=== PATIENT | male | born 1995 | race African-American/Black ===

== ENCOUNTER 2017-03-29 00:53 | Emergency (ER) | payer MEDICAID ==
[~2017-03-29] VITALS: Ht 177.8 cm; Wt 86.0 kg
[2017-03-29 01:53] LABS: BASOPHILS % 0.8 % (0.0-2.0); EOSINOPHILS % 2.3 % (0.0-5.0); HEMATOCRIT. 36.6 % (42.0-52.0); HEMOGLOBIN. 12.7 g/dL (14.0-18.0); LYMPHOCYTES % 34.5 % (20.0-50.0); MEAN CORPUSCULAR HEMOGLOBIN 29.6 pg (28.0-32.0); MEAN CORPUSCULAR VOLUME 85.4 fL (80.0-94.0); MONOCYTES % 6.9 % (2.0-8.0); NEUTROPHILS % 55.5 % (40.0-76.0); PLATELET 149 x1000/uL (130-400); RED BLOOD CELL COUNT 4.29 mill/uL (4.7-6.1); RED CELL DISTRIBUTION WIDTH 13.6 % (11.6-14.6)
[2017-03-29 01:56] LABS: CLARITY URINE CLEAR (CLEAR); COLOR URINE YELLOW (YELLOW); GLUCOSE URINE NEGATIVE (NEGATIVE); KETONES URINE TRACE (NEGATIVE); LEUKOCYTE ESTERASE URINE NEGATIVE (NEGATIVE); NITRITE URINE NEGATIVE (NEGATIVE); OCCULT BLOOD URINE NEGATIVE (NEGATIVE); PH URINE 6.5 (4.5-8.0); PROTEIN URINE NEGATIVE (NEGATIVE); SPECIFIC GRAVITY URINE 1.029 (1.005-1.030)
[2017-03-29 02:06] LABS: CHLORIDE 110 mEq/L (98-107)
[2017-03-29 02:13] LABS: *AMPHETAMINES SCREEN URINE PRESUMTIVE POSITIVE (NEGATIVE); *BARBITURATES SCREEN URINE NEGATIVE (NEGATIVE); *BENZODIAZEPINES SCREEN URINE NEGATIVE (NEGATIVE); *COCAINE SCREEN URINE NEGATIVE (NEGATIVE); CANNABINOID URINE SCREEN PRESUMTIVE POSITIVE (NEGATIVE); METHADONE URINE SCREEN NEGATIVE (NEGATIVE); OPIATES URINE SCREEN NEGATIVE (NEGATIVE); PHENCYCLIDINE URINE SCREEN NEGATIVE (NEGATIVE)
[2017-03-29 02:16] LABS: CARBON DIOXIDE 27 mEq/L (21-32); ETHANOL BLOOD < 10 mg/dL
[2017-03-29 10:11] LABS: CREATINE KINASE 216 IU/L (39-308)
[2017-03-29 15:30] VITALS: BP 124/70
== END 2017-03-29 18:25 | disposition left against medical advice (07) ==
LOC: ER 00:53
DX: F12.129 Cannabis abuse with intoxication, unspecified (principal); F90.9 Attention-deficit hyperactivity disorder, unspecified type; F84.0 Autistic disorder; F17.200 Nicotine dependence, unspecified, uncomplicated
CPT/HCPCS: 36415; 72100; 80053; 80305; 80307; 80329; 81001; 82550; 83690; 85025; 99285; G0482

== ENCOUNTER 2017-04-01 11:47 | Inpatient (IN) | payer MEDICAID, OTHER ==
[2017-04-01] VITALS (16 sets, daily range): BP systolic 108–136; BP diastolic 67–85
[~2017-04-01] VITALS: Ht 177.8 cm; Wt 81.6 kg
[2017-04-01] MEDS ORDERED: LORAZEPAM 2MG/ML CPJ IV STA (12:04)
[2017-04-01] MEDS ORDERED: SODIUM CHLORIDE 0.9% 1,000 ML IV ONE ×2 (12:04→13:20)
[2017-04-01 12:29] LABS: BASOPHILS % 0.6 % (0.0-2.0); EOSINOPHILS % 0.3 % (0.0-5.0); HEMOGLOBIN. 14.6 g/dL (14.0-18.0); LYMPHOCYTES % 12.9 % (20.0-50.0); MEAN CORPUSCULAR HEMOGLOBIN 29.5 pg (28.0-32.0); MEAN PLATELET VOLUME 8.9 fl (7.4-10.4); MONOCYTES % 10.3 % (2.0-8.0); NEUTROPHILS % 75.9 % (40.0-76.0); PLATELET 211 x1000/uL (130-400); RED BLOOD CELL COUNT 4.94 mill/uL (4.7-6.1); RED CELL DISTRIBUTION WIDTH 13.4 % (11.6-14.6)
[2017-04-01] MEDS ORDERED: DEXTROSE 50% WATER 50ML SYRINGE IV ONE ×4 (12:29→17:00)
[2017-04-01 12:36] LABS: CHLORIDE 104 mEq/L (98-107)
[2017-04-01 12:40] LABS: CARBON DIOXIDE 21 mEq/L (21-32)
[2017-04-01 12:45] LABS: CREATINE KINASE 897 IU/L (39-308); ETHANOL BLOOD < 10 mg/dL
[2017-04-01 12:59] LABS: CLARITY URINE CLEAR (CLEAR); COLOR URINE DARK YELLOW (YELLOW); GLUCOSE URINE TRACE (NEGATIVE); KETONES URINE 2+ (NEGATIVE); LEUKOCYTE ESTERASE URINE 1+ (NEGATIVE); NITRITE URINE NEGATIVE (NEGATIVE); OCCULT BLOOD URINE NEGATIVE (NEGATIVE); PROTEIN URINE NEGATIVE (NEGATIVE); SPECIFIC GRAVITY URINE 1.032 (1.005-1.030)
[2017-04-01] MEDS ORDERED: LORAZEPAM 2MG/ML CPJ IV ONE ×2 (13:15→14:30)
[2017-04-01] MEDS ORDERED: DIPHENHYDRAMINE 50MG/ML VIAL IM ONE (13:30)
[2017-04-01] MEDS ORDERED: HALOPERIDOL LACTATE 5MG/ML VIAL IM ONE ×4 (13:30→16:15)
[2017-04-01 13:35] LABS: *AMPHETAMINES SCREEN URINE PRESUMTIVE POSITIVE (NEGATIVE); *BARBITURATES SCREEN URINE NEGATIVE (NEGATIVE); *BENZODIAZEPINES SCREEN URINE NEGATIVE (NEGATIVE); *COCAINE SCREEN URINE NEGATIVE (NEGATIVE); CANNABINOID URINE SCREEN PRESUMTIVE POSITIVE (NEGATIVE); METHADONE URINE SCREEN NEGATIVE (NEGATIVE); OPIATES URINE SCREEN NEGATIVE (NEGATIVE); PHENCYCLIDINE URINE SCREEN NEGATIVE (NEGATIVE)
[2017-04-01] MEDS ORDERED: DIPHENHYDRAMINE 50MG/ML VIAL ONE (13:37)
[2017-04-01] MEDS ORDERED: CLONIDINE 0.1MG TABLET PO PRN (16:45)
[2017-04-01] MEDS ORDERED: IPRATROPIUM/ALBUTEROL 0.5-3(2.5)MG/3ML NEB INH PRN (16:45)
[2017-04-01] MEDS ORDERED: MAGNESIUM/ALUMINUM HYDROXIDE/SIMETHICONE 30ML UDC PO PRN (16:45)
[2017-04-01] MEDS ORDERED: ONDANSETRON HCL 4MG/2ML VIAL IV PRN (16:45)
[2017-04-01] MEDS ORDERED: HALOPERIDOL LACTATE 5MG/ML VIAL IM PRN (16:45)
[2017-04-01 17:30] LABS: PHOSPHORUS 2.5 mg/dL (2.5-4.9)
[2017-04-01 18:17] LABS: HEPATITIS B CORE AB IGM NEGATIVE
[2017-04-01] MEDS: DEXT 5%/0.45% NACL 1000ML 1,000 ML IV SCH (18:22)
[2017-04-01] MEDS ORDERED: LEVOFLOXACIN 500MG PREMIX 100 ML IV SCH (18:30)
[2017-04-01] MEDS ORDERED: DEXTROSE 50% WATER 50ML SYRINGE IV PRN (18:45)
[2017-04-01] MEDS ORDERED: PANTOPRAZOLE SODIUM 40 MG/VIAL IV NR (19:45)
[2017-04-01] MEDS: LORAZEPAM 2MG/ML CPJ IV PRN (19:48)
[2017-04-01] MEDS: HYDROMORPHONE HCL/PF 2MG/ML CPJ IV PRN ×2 (19:52→22:10)
[2017-04-01] MEDS: ENOXAPARIN 40MG/0.4ML SYR SUBCUT SCH (19:52)
[2017-04-01] MEDS: INSULIN LISPRO 100 UNITS/ML SUBCUT SCH (21:00)
[2017-04-01] MEDS: BLOOD SUGAR DIAGNOSTIC STRIP TEST SCH (21:00)
[2017-04-01] MEDS: DIPHENHYDRAMINE 50MG/ML VIAL IV PRN (22:11)
[2017-04-02] VITALS (36 sets, daily range): BP systolic 112–140; BP diastolic 58–104
[2017-04-02] MEDS: LORAZEPAM 2MG/ML CPJ IV PRN (00:23)
[2017-04-02] MEDS: HYDROMORPHONE HCL/PF 2MG/ML CPJ IV PRN (00:23)
[2017-04-02] MEDS: DEXT 5%/0.45% NACL 1000ML 1,000 ML IV SCH ×4 (01:57→20:18)
[2017-04-02 05:28] LABS: HEMATOCRIT. 40.9 % (42.0-52.0); HEMOGLOBIN. 14.1 g/dL (14.0-18.0); MEAN CORPUSCULAR HEMOGLOBIN 29.9 pg (28.0-32.0); MEAN CORPUSCULAR VOLUME 86.4 fL (80.0-94.0); MEAN PLATELET VOLUME 8.7 fl (7.4-10.4); PLATELET 125 x1000/uL (130-400); RED BLOOD CELL COUNT 4.73 mill/uL (4.7-6.1); RED CELL DISTRIBUTION WIDTH 13.4 % (11.6-14.6)
[2017-04-02] MEDS: BLOOD SUGAR DIAGNOSTIC STRIP TEST SCH ×4 (05:47→20:11)
[2017-04-02 05:52] LABS: CHLORIDE 106 mEq/L (98-107)
[2017-04-02 06:02] LABS: CARBON DIOXIDE 26 mEq/L (21-32); CREATINE KINASE 727 IU/L (39-308)
[2017-04-02] MEDS: INSULIN LISPRO 100 UNITS/ML SUBCUT SCH ×4 (07:00→20:11)
[2017-04-02 07:50] LABS: AMMONIA 118 uMol/L (<32)
[2017-04-02 08:26] LABS: PLATELET ESTIMATE SLIGHTLY DECREASED
[2017-04-02] MEDS: PANTOPRAZOLE SODIUM 40 MG/VIAL IV SCH (09:09)
[2017-04-02] MEDS: LACTULOSE 20G/30ML UDC PO SCH ×2 (11:28→16:47)
[2017-04-02] MEDS: LEVOFLOXACIN 500MG PREMIX 100 ML IV SCH (17:01)
[2017-04-02] MEDS: ENOXAPARIN 40MG/0.4ML SYR SUBCUT SCH (17:01)
[2017-04-02 18:58] LABS: CREATINE KINASE 1064 IU/L (39-308)
[2017-04-03] VITALS (22 sets, daily range): BP systolic 92–142; BP diastolic 39–90
[2017-04-03] MEDS: DEXT 5%/0.45% NACL 1000ML 1,000 ML IV SCH (02:55)
[2017-04-03] MEDS: ACETAMINOPHEN 325MG TABLET PO PRN ×2 (04:19→12:09)
[2017-04-03 05:54] LABS: BASOPHILS % 0.3 % (0.0-2.0); EOSINOPHILS % 0.4 % (0.0-5.0); HEMATOCRIT. 39.3 % (42.0-52.0); HEMOGLOBIN. 13.5 g/dL (14.0-18.0); LYMPHOCYTES % 12.9 % (20.0-50.0); MEAN CORPUSCULAR HEMOGLOBIN 29.5 pg (28.0-32.0); MEAN CORPUSCULAR VOLUME 85.6 fL (80.0-94.0); MEAN PLATELET VOLUME 8.9 fl (7.4-10.4); MONOCYTES % 8.1 % (2.0-8.0); NEUTROPHILS % 78.3 % (40.0-76.0); PLATELET 125 x1000/uL (130-400); RED BLOOD CELL COUNT 4.59 mill/uL (4.7-6.1); RED CELL DISTRIBUTION WIDTH 13.1 % (11.6-14.6)
[2017-04-03 06:08] LABS: AMMONIA 69 uMol/L (<32)
[2017-04-03] MEDS: BLOOD SUGAR DIAGNOSTIC STRIP TEST SCH ×4 (06:23→21:29)
[2017-04-03] MEDS: INSULIN LISPRO 100 UNITS/ML SUBCUT SCH ×4 (06:23→21:00)
[2017-04-03 06:24] LABS: CARBON DIOXIDE 25 mEq/L (21-32); CHLORIDE 105 mEq/L (98-107); CREATINE KINASE 907 IU/L (39-308); PHOSPHORUS 3.5 mg/dL (2.5-4.9)
[2017-04-03] MEDS ORDERED: POTASSIUM CHLORIDE 20MEQ TABLET SR PO SCH (09:00)
[2017-04-03] MEDS: PANTOPRAZOLE SODIUM 40 MG/VIAL IV SCH (09:46)
[2017-04-03] MEDS: LACTULOSE 20G/30ML UDC PO SCH ×2 (09:46→17:09)
[2017-04-03] MEDS: ENOXAPARIN 40MG/0.4ML SYR SUBCUT SCH (17:09)
[2017-04-03] MEDS: LEVOFLOXACIN 500MG PREMIX 100 ML IV SCH (17:53)
[2017-04-03] MEDS: DIPHENHYDRAMINE 50MG/ML VIAL IV PRN ×2 (18:18→21:56)
[2017-04-04] VITALS (7 sets, daily range): BP systolic 109–137; BP diastolic 56–74
[2017-04-04] MEDS: DIPHENHYDRAMINE 50MG/ML VIAL IV PRN (03:56)
[2017-04-04 05:49] LABS: BASOPHILS % 0.7 % (0.0-2.0); HEMATOCRIT. 36.4 % (42.0-52.0); HEMOGLOBIN. 12.8 g/dL (14.0-18.0); LYMPHOCYTES % 20.7 % (20.0-50.0); MEAN CORPUSCULAR HEMOGLOBIN 29.6 pg (28.0-32.0); MEAN CORPUSCULAR VOLUME 84.5 fL (80.0-94.0); MEAN PLATELET VOLUME 8.8 fl (7.4-10.4); MONOCYTES % 9.7 % (2.0-8.0); NEUTROPHILS % 65.9 % (40.0-76.0); PLATELET 120 x1000/uL (130-400); RED BLOOD CELL COUNT 4.31 mill/uL (4.7-6.1); RED CELL DISTRIBUTION WIDTH 13.3 % (11.6-14.6)
[2017-04-04 06:02] LABS: CARBON DIOXIDE 27 mEq/L (21-32); CHLORIDE 105 mEq/L (98-107)
[2017-04-04] MEDS: INSULIN LISPRO 100 UNITS/ML SUBCUT SCH ×2 (06:11→12:54)
[2017-04-04] MEDS: BLOOD SUGAR DIAGNOSTIC STRIP TEST SCH ×3 (06:11→12:30)
[2017-04-04] MEDS ORDERED: POTASSIUM CHLORIDE 20MEQ TABLET SR PO SCH (09:00)
[2017-04-04] MEDS ORDERED: PANTOPRAZOLE 40MG DR TABLET PO SCH (09:30)
[2017-04-04] MEDS: LACTULOSE 20G/30ML UDC PO SCH (09:58)
[2017-04-04] MEDS: ERYTHROMYCIN BASE 0.5% OPHTH OINT 3.5GM LEFTEYE SCH ×2 (09:59→14:35)
[2017-04-04] MEDS ORDERED: LEVOFLOXACIN 500MG TABLET PO SCH (11:00)
[2017-04-04 15:12] LABS: BASOPHILS % 0.6 % (0.0-2.0); EOSINOPHILS % 2.7 % (0.0-5.0); HEMATOCRIT. 37.2 % (42.0-52.0); HEMOGLOBIN. 12.9 g/dL (14.0-18.0); LYMPHOCYTES % 14.1 % (20.0-50.0); MEAN CORPUSCULAR HEMOGLOBIN 29.7 pg (28.0-32.0); MEAN CORPUSCULAR VOLUME 85.5 fL (80.0-94.0); MEAN PLATELET VOLUME 8.6 fl (7.4-10.4); MONOCYTES % 10.2 % (2.0-8.0); NEUTROPHILS % 72.4 % (40.0-76.0); PLATELET 121 x1000/uL (130-400); RED BLOOD CELL COUNT 4.36 mill/uL (4.7-6.1)
== END 2017-04-04 17:20 | disposition home or self-care (01) | DRG 720 ==
LOC: ER 11:47 → MICUNO 14:56 → CANRESERV 15:06 → ENRESERV 15:06 → SUPCPDRO 16:28 → EDBEDREQSVC 16:33 → EDBEDREQ 16:33 → ENRESERV 16:44 → MICUSO 04-04 00:30 → MICUNO 04-04 08:00 → 5EST 04-04 11:00
PROVIDERS: ADMIT Internal Medicine Nephrology; ATTEND Internal Medicine Nephrology
DX: A41.9 Sepsis, unspecified organism (principal); J69.0 Pneumonitis due to inhalation of food and vomit; G93.40 Encephalopathy, unspecified; E72.20 Disorder of urea cycle metabolism, unspecified; T50.901A Poisoning by unspecified drugs, medicaments and biological substances, accidental (unintentional), initial encounter; J98.2 Interstitial emphysema; N39.0 Urinary tract infection, site not specified; M62.82 Rhabdomyolysis; E16.2 Hypoglycemia, unspecified; F29 Unspecified psychosis not due to a substance or known physiological condition; H10.30 Unspecified acute conjunctivitis, unspecified eye; E80.6 Other disorders of bilirubin metabolism; F15.10 Other stimulant abuse, uncomplicated; F12.10 Cannabis abuse, uncomplicated; Z59.0 Homelessness; Z78.1 Physical restraint status; Z88.8 Allergy status to other drugs, medicaments and biological substances; Y92.89 Other specified places as the place of occurrence of the external cause
CPT/HCPCS: 36415; 70450; 71010; 71250; 80048; 80053; 80076; 80305; 81001; 82140; 82550; 82962; 83690; 83735; 84100; 85025; 86592; 86703; 86705; 86803; 92610; 93005; 96361; 96372; 96374; 96375; 96376; 99291; C9113; G0482; J1170; J1200; J1630; J1650; J1815; J1956; J2060; J7030; J7050; J7620; A4315